=== PATIENT | female | born 1965 | race Caucasian/White ===

== ENCOUNTER 2019-10-03 00:26 | Emergency (ER) | payer OTHER ==
[~2019-10-03] VITALS: Ht 182.9 cm; Wt 113.4 kg
[2019-10-03] MEDS ORDERED: ONDANSETRON HCL INJ 2MG/ML 2ML 2 MG/ML VIAL IV STA (00:36)
[2019-10-03] MEDS ORDERED: MORPHINE SULFATE 2 MG/ML SYR 1ML IV STA (00:36)
[2019-10-03] MEDS ORDERED: ONDANSETRON HCL INJ 2MG/ML 2ML 2 MG/ML VIAL ONE (00:44)
[2019-10-03] MEDS ORDERED: MORPHINE SULFATE INJ 4 MG/ML INJ 1ML ONE (00:45)
--- NOTE | 2019-10-03 00:56 | NUR ---
US NOTIFIED, ETA 15 MINUTES
--- NOTE | 2019-10-03 01:58 | Diagnostic Imaging Report ---
EXAM: Right Upper Quadrant Ultrasound with Doppler INDICATION: Right upper quadrant pain COMPARISON: Abdominal CT 10/03/2019. TECHNIQUE: Transverse and longitudinal images of the right upper abdomen were obtained. FINDINGS: Liver: Size: 17.8 cm in the right midclavicular line, enlarged Appearance: Increased echogenicity, smooth contour Mass: No focal masses Gallbladder: Stones/Sludge: multiple echogenic shadowing gallstones Wall: 0.27 cm, within normal limits Appearance: No pericholecystic fluid or hydrops. Sonographic Powell's Sign: Negative Bile Ducts: Intrahepatic Ducts: No dilatation Extrahepatic Ducts: Common bile duct measures 0.3 cm, no dilatation Pancreas: Obscured by overlying bowel gas. Right Kidney: Size: 9.3 cm Echogenicity: Normal Parenchymal thickness: Normal Collecting system: No hydronephrosis Stones: None Cyst/Mass: None Vessels: Main Portal Vein: Diameter: 0.8 cm, normal. Normal flow direction. Aorta: Visualized portions are normal Inferior Vena Cava: Visualized portions are normal Free Fluid: No ascites or pleural effusion IMPRESSION: Cholelithiasis without evidence of acute cholecystitis. Signed by: Diego Martinez DO on 10/03/2019 1:55 AM
--- NOTE | 2019-10-03 02:04 | Diagnostic Imaging Report ---
EXAM: CT Abdomen and Pelvis WITHOUT contrast INDICATION: Right upper quadrant pain COMPARISON: None. TECHNIQUE: Abdomen and pelvis were scanned utilizing a multidetector helical scanner from the lung base to the pubic symphysis without administration of IV contrast. Absence of intravenous contrast decreases sensitivity for detection of focal lesions and vascular pathology. Coronal and sagittal reformations were obtained. Routine protocol was performed. IV CONTRAST: None ORAL CONTRAST: None COMPLICATIONS: None RADIATION DOSE: Total DLP: 879 mGy*cm Estimated effective dose: (DLP x 0.015 x size factor) mSv CTDIvol has been reviewed. It is below the limits set by the Radiation Protocol Committee (RPC). Dose modulation, iterative reconstruction, and/or weight based adjustment of the mA/kV was utilized to reduce the radiation dose to as low as reasonably achievable. FINDINGS: LINES and TUBES: None. LOWER THORAX: Unremarkable HEPATOBILIARY: Decreased hepatic attenuation. No focal hepatic lesions. No biliary ductal dilation. GALLBLADDER: Multiple small calcified gallstones, including a gallstone at the gallbladder neck. No wall thickening. SPLEEN: No splenomegaly. PANCREAS: No focal masses or ductal dilatation. ADRENALS: No adrenal nodules KIDNEYS/URETERS: No hydronephrosis. No cystic or solid mass lesions. Punctate nonobstructive calculus in the left renal inferior pole. GI TRACT: Small sliding gastric hiatal hernia. Mild distal esophageal wall thickening. No abnormal distention or evidence of bowel obstruction. Intact gastric surgical changes. Appendix is normal. A few colonic diverticuli. PELVIC ORGANS/BLADDER: Unremarkable. LYMPH NODES: No lymphadenopathy. VESSELS: Unremarkable. PERITONEUM / RETROPERITONEUM: No free air or fluid. BONES: Unremarkable. SOFT TISSUES: Breast implants. IMPRESSION: . 1. Mild distal esophagitis with small sliding gastric hernia. 2. Cholelithiasis without evidence of acute obstructive cholecystitis. 3. Punctate nonobstructive calculus in the left renal inferior pole. 4. Hepatic steatosis. 5. Colonic diverticulosis without diverticulitis. Signed by: Diego Martinez DO on 10/03/2019 2:01 AM
[2019-10-03] MEDS ORDERED: TYLENOL WITH C1 EACH PO (02:26)
[2019-10-03 02:39] VITALS: BP 127/72
--- OUTSIDE RECORDS SUMMARY | 2019-10-11 11:13 | XMS REPORT ---
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 Allergies, Adverse Reactions, Alerts This patient has no known allergies or adverse reactions. Medications This patient has no known medications. Results Test Description Test Time Test Comments Text Results Atomic Results Result Comments CT ABD/PEL WO CONTRAST-HOPD 2019-10-03 01:55:[address] [address] Patient Name: MAMIE COTTO MR #: [id number] : 1965 Age/Sex: 54/F Req #: [id number] [facility] Physician: Ordered by: GEORGE POLLACK MD Report #: [id number] [facility] Room/Bed: Procedure: [id number] HOPD/CT ABD/PEL WO CONTRAST-HOPD Exam Date: 10/03/19 Exam Time: 57 REPORT STATUS: Signed EXAM: CT Abdomen and Pelvis WITHOUT contrast INDICATION: Right upper quadrant pain COMPARISON: None. TECHNIQUE: Abdomen and pelvis were scanned utilizing a multidetector helical scanner from the lung base to the pubic symphysis without administration of IV contrast. Absence of intravenous contrast decreases sensitivity for detection of focal lesions and vascular pathology. Coronal and sagittal reformations were obtained. Routine protocol was performed. IV CONTRAST: None ORAL CONTRAST: None COMPLICATIONS: None RADIATION DOSE: Total DLP: 879 mGy*cm Estimated effective dose: (DLP x 0.015 x size factor) mSv CTDIvol has been reviewed. It is below the limits set by the Radiation Protocol Committee (RPC). Dose modulation, iterative reconstruction, and/or weight based adjustment of the mA/kV was utilized to reduce the radiation dose to as low as reasonably achievable. FINDINGS: LINES and TUBES: None. LOWER THORAX: Unremarkable HEPATOBILIARY: Decreased hepatic attenuation. No focal hepatic lesions. No biliary ductal dilation. GALLBLADDER: Multiple small calcified gallstones, including a gallstone at the gallbladder neck. No wall thickening. SPLEEN: No splenomegaly. PANCREAS: No focal masses or ductal dilatation. ADRENALS: No adrenal nodules KIDNEYS/URETERS: No hydronephrosis. No cystic or solid mass lesions. Punctate nonobstructive calculus in the left renal inferior pole. GI TRACT: Small sliding gastric hiatal hernia. Mild distal esophageal wall thickening. No abnormal distention or evidence of bowel obstruction. Intact gastric surgical changes. Appendix is normal. A few colonic diverticuli. PELVIC ORGANS/BLADDER: Unremarkable. LYMPH NODES: No lymphadenopathy. VESSELS: Unremarkable. PERITONEUM / RETROPERITONEUM: No free air or fluid. BONES: Unremarkable. SOFT TISSUES: Breast implants. IMPRESSION: . 1. Mild dista l esophagitis with small sliding gastric hernia. 2. Cholelithiasis without evidence of acute obstructive cholecystitis. 3. Punctate nonobstructive calculus in the left renal inferior pole. 4. Hepatic steatosis. 5. Colonic diverticulosis without diverticulitis. Signed by: Diego Martinez DO on 10/03/2019 2:01 AM Dictated By: DIEGO MARTINEZ DO 0 Transcribed By: CONI on 10/03/19200 COPY TO: GEORGE POLLACK MD GALL BLADDER-HOPD 2019-10-03 01:44:00 [place] [address] Patient Name: MAMIE COTTO MR #: [id number] : 1965 Age/Sex: 54/F Req #: [id number] Adm Physician: Ordered by: GEORGE POLLACK MD Report #: [id number] [facility] Room/Bed: Procedure: [id number] HOPD/US GALL BLADDER-HOPD Exam Date: 10/03/19 Exam Time: 0115 REPORT STATUS: Signed EXAM: Right Upper Quadrant Ultrasound with Doppler INDICATION: Right upper quadrant pain COMPARISON: Abdominal CT 10/03/2019. TECHNIQUE: Transverse and longitudinal images of the right upper abdomen were obtained. FINDINGS: Liver: Size: 17.8 cm in the right midclavicular line, enlarged Appearance: Increased echogenicity, smooth contour Mass: No focal masses Gallbladder: Stones/Sludge: multiple echogenic shadowing gallstones Wall: 0.27 cm, within normal limits Appearance: No pericholecystic fluid or hydrops. Sonographic Powell's Sign: Negative Bile Ducts: Intrahepatic Ducts: No dilatation Extrahepatic Ducts: Common bile duct measures 0.3 cm, no dilatation Pancreas: Obscured by overlying bowel gas. Right Kidney: Size: 9.3 cm Echogenicity: Normal Parenchymal thickness: Normal Collecting system: No hydronephrosis Stones: None Cyst/Mass: None Vessels: Main Portal Vein: Diameter: 0.8 cm, normal. Normal flow direction. Aorta: Visualized portions are normal Inferior Vena Cava: Visualized portions are normal Free Fluid: No ascites or pleural effusion IMPRESSION: Cholelithiasis without evidence of acute cholecystitis. Signed by: Diego Martinez DO on 10/03/2019 1:55 AM Dictated By: DIEGO MARTINEZ DO 4 Transcribed By: CONI on 10/03/19154 COPY TO: GEORGE POLLACK MD
== END 2019-10-03 02:40 | disposition home or self-care (01) ==
LOC: FSED 00:26
DX: R10.11 Right upper quadrant pain (principal); R11.2 Nausea with vomiting, unspecified; K80.20 Calculus of gallbladder without cholecystitis without obstruction; K57.90 Diverticulosis of intestine, part unspecified, without perforation or abscess without bleeding; K46.9 Unspecified abdominal hernia without obstruction or gangrene; K76.0 Fatty (change of) liver, not elsewhere classified; Z98.84 Bariatric surgery status
CPT/HCPCS: 74176; 76705; 80053; 81003; 85025; 96374; 96376; 99284; J2270; J2405

== ENCOUNTER 2023-01-30 12:55 | Emergency (ER) | payer OTHER, BC ==
[~2023-01-30] VITALS: Ht 182.9 cm; Wt 115.7 kg
[~2023-01-30 12:55] MED LIST: AMOX TR-K CLV1 EAC2 PO; BIRTH CONTROL PO; TYLENOL WITH C1 EACH PO
[2023-01-30] MEDS ORDERED: PREDNISONE20 MG PO (14:17)
[2023-01-30] MEDS ORDERED: HYDROXYZINE HCL25 MG PO (14:18)
== END 2023-01-30 14:30 | disposition home or self-care (01) ==
LOC: FSED 13:13
DX: R21 Rash and other nonspecific skin eruption (principal); L29.9 Pruritus, unspecified; E11.65 Type 2 diabetes mellitus with hyperglycemia; I10 Essential (primary) hypertension; E78.5 Hyperlipidemia, unspecified; E03.9 Hypothyroidism, unspecified; Z98.84 Bariatric surgery status
CPT/HCPCS: 99283